=== PATIENT | male | born 1975 | race Caucasian/White ===

== ENCOUNTER 2018-11-30 12:46 | Outpatient (CLI) | payer BC ==
--- NOTE | 2018-11-30 13:29 | CT ---
CT BRAIN WITHOUT CONTRAST: HISTORY: Syncope FINDINGS: No evidence of acute infarct, hemorrhage, midline shift or abnormal extra-axial fluid collections is seen. The ventricular size is appropriate and the basilar cisterns are patent. The bony calvarium is intact. The visualized paranasal sinuses and mastoid air cells are well aerated. IMPRESSION: No CT evidence of acute intracranial process.
== END 2018-11-30 12:47 | disposition home or self-care (01) ==
LOC: SCSCT 12:46
PROVIDERS: ATTEND Internal Medicine Cardiovascular Disease
DX: R55 Syncope and collapse (principal)
CPT/HCPCS: 70450

== ENCOUNTER 2019-01-17 14:27 | Outpatient (CLI) | payer BC ==
--- NOTE | 2019-01-17 16:58 | MRI ---
Brain MRI with and without contrast: 01/17/2019 HISTORY: Episodes of dizziness, multiple falls TECHNIQUE: Multiplanar multisequence MR imaging of the brain obtained with and without contrast FINDINGS: The diffusion weighted imaging demonstrates no evidence for acute infarction. The axial gradient echo imaging demonstrates no evidence for intracranial hemorrhage. There is mild mucosal thickening involving the posterior aspect of bilateral maxillary sinuses as wel l as the anterior aspect of bilateral ethmoid air cells and the left frontal sinus. The arterial flow voids at the axial level of the skull base appear unremarkable on the T2-weighted i maging. There is no midline shift or mass effect. No ventricular enlargement. No white matter signal abnormality noted on the FLAIR or T2 weighted imaging. The post contrast imaging demonstrates no abnormal enhancement within the brain parenchyma. IMPRESSION: No acute findings.
== END 2019-01-17 14:28 | disposition home or self-care (01) ==
LOC: SCSMRI 14:27
PROVIDERS: ATTEND Psychiatry & Neurology Neurology
DX: R42 Dizziness and giddiness (principal)
CPT/HCPCS: 70553

== ENCOUNTER 2019-12-16 13:37 | Emergency (ER) | payer BC, OTHER, SELFPAY ==
--- NOTE | 2019-12-16 14:27 | RAD ---
Exam: Chest one view HISTORY:Difficulty breathing. Accidental ingestion of normal for a new. Comparison: None FINDINGS: Cardiac silhouette: Normal Aorta: Unremarkable Pulmonary vessels: Normal. There is left hilar fullness. Costophrenic angles: Clear LUNGS: No masses or consolidation. Pneumothorax: None Osseous abnormalities: None IMPRESSION: Left hilar fullness. Better evaluation with a chest CT is recommended.
[2019-12-16] MEDS ORDERED: Ketorolac Tromethamine 30 MG/ML VIAL ONE (14:49)
[2019-12-16] MEDS ORDERED: Morphine 4 MG/ML VIAL ONE (14:49)
[2019-12-16] MEDS ORDERED: methylPREDNISolone Sod Succ 40 MG VIAL ONE ×2 (14:50→15:26)
[2019-12-16] MEDS ORDERED: Albuterol Sulfate 2.5 mg/3 ml Neb ONE (15:00)
--- NOTE | 2019-12-21 15:13 | EKG ---
Test Reason : Blood Pressure : / mmHG Vent. Rate : 102 BPM Atrial Rate : 102 BPM P-R Int : 146 ms QRS Dur : 092 ms QT Int : 378 ms P-R-T Axes : 068 049 016 degrees QTc Int : 492 ms Sinus tachycardia T wave abnormality, consider inferior ischemia Abnormal ECG Confirmed by BHARTI SALAS DO ([id number]), editor & co founder JATINDER HORNE ([id number] on 12/21/2019 3:13:16 PM Referred By: Confirmed By:BHARTI SALAS DO
== END 2019-12-16 17:27 | disposition home or self-care (01) ==
LOC: ERS 13:37
DX: T59.4X1A Toxic effect of chlorine gas, accidental (unintentional), initial encounter (principal)
CPT/HCPCS: 71045; 93005; 94640; 94760; 96374; 96375; J1885; J2270; J2920; J7611